=== PATIENT | male | born 1950 | race Caucasian/White ===

== ENCOUNTER 2018-10-19 15:24 | Emergency (ER) | payer OTHER ==
[~2018-10-19] VITALS: Ht 172.7 cm; Wt 77.1 kg
[2018-10-19] MEDS ORDERED: ALLO100 (16:47)
[2018-10-19] MEDS ORDERED: BP MED (16:47)
== END 2018-10-19 16:33 | disposition home or self-care (01) ==
LOC: ER 15:24
DX: S01.01XA Laceration without foreign body of scalp, initial encounter (principal); S20.219A Contusion of unspecified front wall of thorax, initial encounter; I10 Essential (primary) hypertension; V89.2XXA Person injured in unspecified motor-vehicle accident, traffic, initial encounter
CPT/HCPCS: 12004; 93005; 93010; 99284-25

== ENCOUNTER 2019-03-30 10:03 | Day surgery (SDC) | payer OTHER ==
[~2019-03-30] VITALS: Ht 152.4 cm; Wt 75.0 kg
[~2019-03-30 10:03] MED LIST: ALLO100 PO; BP MED
[2019-03-30] MEDS ORDERED: METO25ER PO (10:22)
[2019-03-30] MEDS ORDERED: ATOR20 PO (10:22)
[2019-03-30] MEDS ORDERED: Aspir 8181 MG PO (10:23)
[2019-03-30] MEDS ORDERED: AMLO10 PO (10:25)
[2019-03-30] MEDS ORDERED: INDO50S PO (10:26)
--- NOTE | 2019-03-30 16:00 | NUR ---
TR BAND REMAINS IN PLACE. HAVE ATTEMPTED TO DEFLATE, BUT PT STARTED BLEEDING AND NEEDED TO HAVE TR BAND REINFLATED. PT DECLINES ANY PAIN. PT WAS INSTRUCTED TO NOT USE RIGHT ARM. STILL WAITING FOR TRANSFER BED AVAILABILITY. CALL LIGHT IS IN REACH OF PT. PT AWARE OF SIGNS AND SYMPTOMS TO NOTIFY NURSE IMMEDIATELY.
--- NOTE | 2019-03-30 18:21 | NUR ---
SHIFT SUMMARY PT IS STILL WAITING ON TRANSFER BED TO [facility]. TR BAND IS ALMOST DONE BEING TAPERRED OFF. PT IS IN SR W/BBB ON TELE. PT HAS NO COMPLAINTS OF PAIN. VITALS HAVE REMAINED STABLE THROUGH OUT SHIFT.
--- NOTE | 2019-03-30 21:37 | NUR ---
ASSUMED CARE OF PT. PT ALERT AND ORIENTED SITTING UP IN BED. PT DENIES CHEST PAIN OR SOB. PT REMINDED TO ALERT MEDICAL STAFF IMMEDIATELY IF NEW OR WORSENING CP OR SOB. TR BAND REMOVED FROM RIGHT RADIAL SITE, CLEAR WINDOW DRESSING APPLIED AND ARMBOARD REPLACED. SITE SOFT/NONTENDER, SLIGHT OOZE NOTED. PT AWAITING TRANSFER TO [facility] FOR CABG PROCEDURE. PER [facility] BED WILL NOT BE AVAILABLE UNTIL TOMORROW. PT UPDATED. PT DENIES NEEDS AT THIS TIME. SEE FULL SHIFT ASSESSMENT.
--- NOTE | 2019-03-31 05:18 | NUR ---
SHIFT SUMMARY NO ACUTE CHANGES OVERNIGHT. PT REMAINS ALERT/ORIENTED. PT CONTINUES TO DENY CP, N/V, SOB. RIGHT RADIAL SITE SOFT/NONTENDER, ARMBOARD AND CLEAR DRESSING IN PLACE, SCANT AMOUNT OF OOZING NOTED. PT'S VSS OVERNIGHT AND PT UPDATED ON PLAN TO TRANSFER TO [facility] TODAY WHEN BED BECOMES AVAILABLE. WILL REPORT TO DAYSHIFT NURSE.
--- NOTE | 2019-03-31 09:01 | NUR ---
PT IS ANXIOUS ABOUT WAITING AROUND FOR TRANSFER BED AT [facility]. CALLED [facility] AND THEY REPORTED THAT PT IS FIRST TO BE BEDDED, ONCE A BED OPENS UP. I UPDATED PT ON TRANSFER STATUS AND HE APPEARED TO BE SATISFIED.
--- NOTE | 2019-03-31 12:38 | NUR ---
PT IS RESTING IN BED JUST FINISHING UP LUNCH. STILL WAITING FOR TRANSFER BED TO [facility]. PT DECLINES ANY NEEDS CURRENTLY. PT IS SINUS JULIENNE WITH BBB ON TELE.
--- NOTE | 2019-03-31 14:54 | NUR ---
1450 REPORT CALLED TO [facility] AT [facility]. ALL QUESTIONS ANSWERED. PT TO TRANSPORT VIA [facility]. ALL BELONGINGS GATHERED AND WITH PT. FAMILY AND PT UP TO DATE ON WHERE PT IS TRANSFERING TO.
== END 2019-03-31 15:46 | disposition short-term general hospital (02) ==
LOC: MHTC 10:03 → PCU 12:45 → MHTC 03-31 15:46
PROC: B201YZZ Plain Radiography of Multiple Coronary Arteries using Other Contrast (ICD-10-PCS; principal; 2019-03-30)
PROC: B205YZZ Plain Radiography of Left Heart using Other Contrast (ICD-10-PCS; principal; 2019-03-30)
PROC: 4A023N7 Measurement of Cardiac Sampling and Pressure, Left Heart, Percutaneous Approach (ICD-10-PCS; principal; 2019-03-30)
DX: I25.119 Atherosclerotic heart disease of native coronary artery with unspecified angina pectoris (principal); I10 Essential (primary) hypertension; E78.5 Hyperlipidemia, unspecified; J44.9 Chronic obstructive pulmonary disease, unspecified; F41.9 Anxiety disorder, unspecified; F32.9 Major depressive disorder, single episode, unspecified; I25.2 Old myocardial infarction; F17.210 Nicotine dependence, cigarettes, uncomplicated; I47.1 Supraventricular tachycardia; Z95.5 Presence of coronary angioplasty implant and graft; Z79.82 Long term (current) use of aspirin; Z79.899 Other long term (current) drug therapy
CPT/HCPCS: 93005; 93010; 93454; 99152; 99153; C1769; C1894; J1644; J2250; J3010; J7030; Q9967

== ENCOUNTER 2021-02-28 08:17 | Day surgery (SDC) | payer OTHER ==
[~2021-02-28] VITALS: Ht 172.7 cm; Wt 75.3 kg
[~2021-02-28 08:17] MED LIST changes: +AMLO10 PO; +ATOR20 PO; +Aspir 8181 MG PO; +INDO50S PO; +METO25ER PO
[2021-02-28] MEDS ORDERED: ENTRESTO 24 MG1 EACH PO (09:28)
[2021-02-28] MEDS ORDERED: SPIR25 PO (09:29)
--- NOTE | 2021-02-28 09:55 | NUR ---
Ambulatory in Day Surgery History, Chart, Medications and Allergies reviewed before start of procedure. Lungs clear T/O to Auscultation. Pre-Op teaching done. Pt verbalizes understanding. Patient States Post-Procedure ride home has been arranged.
--- NOTE | 2021-02-28 14:58 | NUR ---
1527 WHEN REYES PAITIENT TO CAR THE COPY OF DC INSTRUCTS WERE ON PATIENTS LAP AND HE ACCIDENTALLY TOOK COPY WITH HIM
== END 2021-02-28 23:04 | disposition home or self-care (01) ==
LOC: ORSCMMR 08:17 → ORD 10:00 → ORSCMMR 23:04
PROVIDERS: Surgery
PROC: 0WUF0JZ Supplement Abdominal Wall with Synthetic Substitute, Open Approach (ICD-10-PCS; principal; 2021-02-28 10:00)
DX: K43.2 Incisional hernia without obstruction or gangrene (principal); I10 Essential (primary) hypertension; I25.10 Atherosclerotic heart disease of native coronary artery without angina pectoris; J44.9 Chronic obstructive pulmonary disease, unspecified; B19.20 Unspecified viral hepatitis C without hepatic coma; K74.60 Unspecified cirrhosis of liver; E78.5 Hyperlipidemia, unspecified; Z79.899 Other long term (current) drug therapy; Z79.82 Long term (current) use of aspirin
CPT/HCPCS: A9270; C1781; J0690; J1100; J1885; J2250; J2370; J2405; J2704; J3010; J7120

== ENCOUNTER 2023-11-05 10:50 | Day surgery (SDC) | payer OTHER ==
[~2023-11-05] VITALS: Ht 172.7 cm; Wt 82.8 kg
[~2023-11-05 10:50] MED LIST changes: +ENTRESTO 24 MG1 EACH PO; +Lactated Ringer's 1,000 ML IV ONE; +Lidocaine 2% 5 ML SDV ONE; +Lidocaine HCl/Pf 1% 5 ML VIAL ONE; +Methylene Blue 1% 100 MG/10 ML VIAL ONE; +SPIR25 PO
[2023-11-05] MEDS ORDERED: CLOPIDOGREL300 M1 (11:20)
[2023-11-05] MEDS ORDERED: propofoL 50 ML IV ONE (11:55)
[2023-11-05] MEDS ORDERED: Lactated Ringer's 1,000 ML IV ONE (12:04)
[2023-11-05 14:12] VITALS: BP 121/62
== END 2023-11-05 14:17 | disposition home or self-care (01) ==
LOC: ORSCSDS 10:50
PROVIDERS: Internal Medicine Gastroenterology
PROC: 0DBL8ZX Excision of Transverse Colon, Via Natural or Artificial Opening Endoscopic, Diagnostic (ICD-10-PCS; principal; 2023-11-05 12:15)
PROC: 0DB78ZX Excision of Stomach, Pylorus, Via Natural or Artificial Opening Endoscopic, Diagnostic (ICD-10-PCS; principal; 2023-11-05 12:15)
PROC: 0DBH8ZX Excision of Cecum, Via Natural or Artificial Opening Endoscopic, Diagnostic (ICD-10-PCS; principal; 2023-11-05 12:15)
PROC: 0DBN8ZX Excision of Sigmoid Colon, Via Natural or Artificial Opening Endoscopic, Diagnostic (ICD-10-PCS; principal; 2023-11-05 12:15)
DX: D50.9 Iron deficiency anemia, unspecified (principal); K74.60 Unspecified cirrhosis of liver; I85.10 Secondary esophageal varices without bleeding; R19.5 Other fecal abnormalities; Z80.0 Family history of malignant neoplasm of digestive organs; B96.81 Helicobacter pylori [H. pylori] as the cause of diseases classified elsewhere; K29.70 Gastritis, unspecified, without bleeding; D12.3 Benign neoplasm of transverse colon; K63.5 Polyp of colon; J44.9 Chronic obstructive pulmonary disease, unspecified; I25.10 Atherosclerotic heart disease of native coronary artery without angina pectoris; I10 Essential (primary) hypertension; I25.2 Old myocardial infarction; Z79.02 Long term (current) use of antithrombotics/antiplatelets; Z79.899 Other long term (current) drug therapy; Z79.82 Long term (current) use of aspirin
CPT/HCPCS: 88305; 88342; J2001; J2704; J7120; Q9968